=== PATIENT | male | born 1980 | race Caucasian/White ===

== ENCOUNTER 2016-10-18 16:49 | Emergency (ER) | payer OTHER ==
[2016-10-18 17:10] VITALS: BP 140/70; PULSE 60; RESP 20; TEMP 99.1
[2016-10-18 17:20] VITALS: RESP 16; O2SAT 98
[2016-10-18 17:33] LABS: AUTOMATED NEUTROPHIL # 9.5 TH/MM3 (1.8-7.7); BASOPHIL # 0.4 TH/MM3 (0-0.2); BASOPHIL % 3.1 % (0.0-2.0); EOSINOPHIL # 0.2 TH/MM3 (0-0.4); EOSINOPHIL % 1.3 % (0.0-4.0); LYMPH % 14.5 % (9.0-44.0); LYMPHOCYTE # 1.9 TH/MM3 (1.0-4.8); MEAN CELL VOLUME 90.2 FL (80.0-100.0); MEAN CORPUSCULAR HEMOGLOBIN 29.2 PG (27.0-34.0); MEAN CORPUSCULAR HGB CONC 32.4 % (32.0-36.0); NEUT % 74.1 % (16.0-70.0); PLATELET COUNT 342 TH/MM3 (150-450); RED BLOOD COUNT 5.22 MIL/MM3 (4.50-5.90); RED CELL DISTRIBUTION WIDTH 12.9 % (11.6-17.2); WHITE BLOOD COUNT 12.9 TH/MM3 (4.0-11.0)
[2016-10-18 17:38] LABS: HEMO FLAGS DIFF FINAL
[2016-10-18 17:44] LABS: POTASSIUM 3.9 MEQ/L (3.5-5.1)
[2016-10-18] MEDS ORDERED: ONDANSETRON HCL 4 MG/2 ML VIAL IV PUSH ONE (17:45)
[2016-10-18] MEDS ORDERED: MORPHINE SULFATE 4 MG/ML INJ IV PUSH ONE (17:45)
[2016-10-18 17:47] LABS: BICARBONATE 25.3 MEQ/L (21.0-32.0)
[2016-10-18 17:48] LABS: APTT (PATIENT) 25.3 SEC (24.3-30.1)
--- NOTE | 2016-10-18 17:48 | PD ---
HPI Chief Complaint: Injury Time Seen by Provider: 17:13 Travel History International Travel<30 days: No Contact w/Intl Traveler<30days: No Traveled to known affect area: No History of Present Illness HPI 36-year-old male with no significant past medical issues, presents to the ER today because he states that he was working on a roof and fell onto a truss hitting the anterior part of his chest, is complaining of 8 out of 10 anterior chest wall pain, neck pain, upper back pain. He got himself up, had walked himself to urgent care and was told to come to the ER. He has more pain with movement and deep breaths. He denies any other injuries. He denies any head injury or loss of consciousness. Modifying Factors: None Associated Signs & Symptoms: Fall, anterior chest wall pain and neck pain and upper back pain Risk Factors: None PFSH Past Medical History Asthma: Yes Diminished Hearing: No Tetanus Vaccination: < 5 Years Influenza Vaccination: No ?: Not Past Surgical History Surgical History: No Previous Surgery Social History Alcohol Use: No Tobacco Use: No Substance Use: No Allergies-Medications (Allergen,Severity, Reaction): Coded Allergies: Aspirin (Verified Allergy, Unknown, SOB, 10/18/16) Review of Systems Except as stated in HPI: all other systems reviewed are Neg Physical Exam Narrative GENERAL: Well-developed young white male patient currently in moderate distress , awake and oriented 3. SKIN: Warm and dry. HEAD: Atraumatic. Normocephalic. EYES: Pupils equal and round. No scleral icterus. No injection or drainage. ENT: No nasal bleeding or discharge. Mucous membranes pink and moist. NECK: Trachea midline. No JVD. CARDIOVASCULAR: Regular rate and rhythm. No murmur appreciated. RESPIRATORY: No accessory muscle use. Clear to auscultation. Breath sounds equal bilaterally. CHEST: Tender to palpation of the midsternal area without deformity or crepitance. No obvious ecchymosis. No retractions or use of accessory muscles. GASTROINTESTINAL: Abdomen soft, non-tender, nondistended. Hepatic and splenic margins not palpable. MUSCULOSKELETAL: No obvious deformities. No clubbing. No cyanosis. No edema. NEUROLOGICAL: Awake and alert. No obvious cranial nerve deficits. Motor grossly within normal limits. Normal speech. PSYCHIATRIC: Appropriate mood and affect; insight and judgment normal. Data Data Last Documented VS Vital Signs Date Time Temp Pulse Resp B/P Pulse Ox O2 Delivery O2 Flow Rate FiO2 10/18/16 17:20 98 Room Air 10/18/16 17:20 16 10/18/16 17:10 99.1 60 140/70 Orders Basic Metabolic Panel (Bmp) (10/18/16 17:13) Complete Blood Count With Diff (10/18/16 17:13) Prothrombin Time / Inr (Pt) (10/18/16 17:13) Act Partial Throm Time (Ptt) (10/18/16 17:13) Type And Screen (10/18/16 17:13) Chest, Single Ap (10/18/16 17:13) Ct Thorax/ Chest W Iv Contrast (10/18/16 17:13) Iv Access Insert/Monitor (10/18/16 17:13) Ecg Monitoring (10/18/16 17:13) Oximetry (10/18/16 17:13) Oxygen Administration (10/18/16 17:13) Ct Cerv Spine W/O Contrast (10/18/16 17:13) Morphine Inj (Morphine Inj) (10/18/16 17:45) Ondansetron Inj (Zofran Inj) (10/18/16 17:45) Iohexol 350 Inj (Omnipaque 350 Inj) (10/18/16 18:32) Labs Laboratory Tests Test 10/18/16 17:00 White Blood Count 12.9 TH/MM3 Red Blood Count 5.22 MIL/MM3 Hemoglobin 15.3 GM/DL Hematocrit 47.0 % Mean Corpuscular Volume 90.2 FL Mean Corpuscular Hemoglobin 29.2 PG Mean Corpuscular Hemoglobin 32.4 % Concent Red Cell Distribution Width 12.9 % Platelet Count 342 TH/MM3 Mean Platelet Volume 7.7 FL Neutrophils (%) (Auto) 74.1 % Lymphocytes (%) (Auto) 14.5 % Monocytes (%) (Auto) 7.0 % Eosinophils (%) (Auto) 1.3 % Basophils (%) (Auto) 3.1 % Neutrophils # (Auto) 9.5 TH/MM3 Lymphocytes # (Auto) 1.9 TH/MM3 Monocytes # (Auto) 0.9 TH/MM3 Eosinophils # (Auto) 0.2 TH/MM3 Basophils # (Auto) 0.4 TH/MM3 CBC Comment DIFF FINAL Differential Comment Prothrombin Time 11.0 SEC Prothromb Time International 1.0 RATIO Ratio Activated Partial 25.3 SEC Thromboplast Time Sodium Level 139 MEQ/L Potassium Level 3.9 MEQ/L Chloride Level 103 MEQ/L Carbon Dioxide Level 25.3 MEQ/L Anion Gap 11 MEQ/L Blood Urea Nitrogen 19 MG/DL Creatinine 0.94 MG/DL Estimat Glomerular Filtration 91 ML/MIN Rate Random Glucose 86 MG/DL Calcium Level 8.8 MG/DL [facility] Medical Decision Making Medical Screen Exam Complete: Yes Emergency Medical Condition: Yes Medical Record Reviewed: Yes Interpretation(s) Laboratory Tests Test 10/18/16 17:00 White Blood Count 12.9 TH/MM3 (4.0-11.0) Neutrophils (%) (Auto) 74.1 % (16.0-70.0) Basophils (%) (Auto) 3.1 % (0.0-2.0) Neutrophils # (Auto) 9.5 TH/MM3 (1.8-7.7) Basophils # (Auto) 0.4 TH/MM3 (0-0.2) Blood Urea Nitrogen 19 MG/DL (7-18) Differential Diagnosis Anterior chest wall pain after fallchest wall contusion versus rib fractures versus acute intrathoracic injuries Narrative Course X-ray and CAT scans did not reveal any signs of acute injuries. Patient likely has a chest wall contusion and my plan would be to give him symptomatic relief or pain and follow-up with primary care doctor. Return for any worsening in symptoms as needed. The plan has been discussed with him and he states understanding. Diagnosis Primary Impression: Chest wall contusion Med/Other Pt SpecificInfo: Prescription(s) given Scripts Hydrocodone-Acetaminophen (Lortab)5-325 Mg Tab1-2 Tab PO Q6H PRN (PAIN) #15 TAB Ref 0 Prov:Cheryle Hugo MD 10/18/16 Disposition: 01 DISCHARGE HOME Condition: Stable Cheryle Hugo MD Oct 18, 2016 17:48
--- NOTE | 2016-10-18 18:30 | RADHPO ---
EXAM DATE/TIME: 10/18/2016 17:41 [facility] COMPARISON: No previous studies available for comparison. INDICATIONS : Fall, complains of chest pain. MEDICAL HISTORY : Asthma SURGICAL HISTORY : None. ENCOUNTER: Initial ACUITY: 1 day PAIN SCORE: 10/10 LOCATION: Bilateral chest FINDINGS: Mild increased interstitial changes are noted consistent with mild pulmonary vascular congestion vers us pneumonia. Clinical correlation is recommended. The heart is mildly prominent. There is a poor i nspiratory result. CONCLUSION: 1. Mild increased interstitial markings consistent with mild pulmonary vascular congestion versus pne umonia. Clinical correlation is recommended. 2. Mild prominence of the cardiac silhouette. 3. Poor inspiratory result. Fco Bello MD on October 18, 2016 at 18:20 Board Certified Radiologist. This report was verified electronically.
[2016-10-18] MEDS ORDERED: IOHEXOL 350 MG/ML 10 ML VIAL (for RAD DIAG) IV ONE (18:32)
--- NOTE | 2016-10-18 18:44 | RADHPO ---
EXAM DATE/TIME: 10/18/2016 18:05 [facility] COMPARISON: CHEST SINGLE AP, October 18, 2016, 17:41. INDICATIONS : Trauma. Chest pain post fall from roof. IV CONTRAST: 75 cc Omnipaque 350 (iohexol) IV RADIATION DOSE: 14.08 CTDIvol (mGy) MEDICAL HISTORY : None SURGICAL HISTORY : None. ENCOUNTER: Initial ACUITY: 1 day PAIN SCALE: 9/10 LOCATION: Bilateral chest TECHNIQUE: Volumetric scanning of the chest was performed. Using automated exposure control and adjustment of t he mA and/or kV according to patient size, radiation dose was kept as low as reasonably achievable to obtain optimal diagnostic quality images. FINDINGS: The lungs are clear without infiltrate, nodule, or mass. There is no pleural effusion. No appreciab le pathological adenopathy is seen within the mediastinum. The right kidney measures 8.2 cm in AP melody meter left kidney measures 4.2 cm and symmetrical in size and most likely on a congenital basis, rehman dionicio the exact etiology is not certain. No definite fractures are seen. No definite pneumothorax is se en for technique. CONCLUSION: Unremarkable study except for asymmetrical size of the kidneys. Lux Thompson MD on October 18, 2016 at 18:39 Board Certified Radiologist. This report was verified electronically.
--- NOTE | 2016-10-18 18:55 | RADHPO ---
EXAM DATE/TIME: 10/18/2016 18:00 [facility] COMPARISON: No previous studies available for comparison. INDICATIONS : Trauma. Fall from roof. Neck pain. RADIATION DOSE: 26.70 CTDIvol (mGy) MEDICAL HISTORY : None SURGICAL HISTORY : None. ENCOUNTER: Initial ACUITY: 1 day PAIN SCALE: 9/10 LOCATION: Bilateral neck TECHNIQUE: Volumetric scanning of the cervical spine was performed. Multiplanar reconstructions in the sagittal, coronal and oblique axial planes were performed. Using automated exposure control and adjustment o f the mA and/or kV according to patient size, radiation dose was kept as low as reasonably achievable to obtain optimal diagnostic quality images. FINDINGS: No significant subluxation or soft tissue swelling is seen. No definite fracture is seen for techniqu e. C2-C3: No appreciable compromised to the thecal sac, exiting nerve roots are seen. The neural danii sai are patent bilaterally. No appreciable thecal sac stenosis is seen. C3-C4: No appreciable compromised to the thecal sac, exiting nerve roots are seen. The neural danii sai are patent bilaterally. No appreciable thecal sac stenosis is seen. There is hypertrophic change protruding into bilateral lateral recess without any significant compromise to the exiting nerve felecia ts. C4-C5: No appreciable compromised to the thecal sac, exiting nerve roots are seen. The neural danii sai are patent bilaterally. No appreciable thecal sac stenosis is seen. C5-C6: No appreciable compromised to the thecal sac, exiting nerve roots are seen. The neural danii sai are patent bilaterally. No appreciable thecal sac stenosis is seen. C6-C7: Slight degenerative changes are seen within the disc space and facets. Slight bulging disc and hypertrophic changes are seen with indentation on the thecal sac and no significant compromise to th e thecal sac or the exiting nerve roots. C7-T1: No appreciable compromised to the thecal sac, exiting nerve roots are seen. The neural danii sai are patent bilaterally. No appreciable thecal sac stenosis is seen CONCLUSION: Chronic changes without any significant compromise to the thecal sac or the exiting nerve roots. Lux Thompson MD on October 18, 2016 at 18:49 Board Certified Radiologist. This report was verified electronically.
[2016-10-18] MEDS ORDERED: HYDR-3533 PO (19:10)
[2016-10-18 19:19] VITALS: BP 138/76; PULSE 52; RESP 20; O2SAT 100
== END 2016-10-18 19:33 | disposition home or self-care (01) ==
LOC: PHEFT 16:49
DX: S20.219A Contusion of unspecified front wall of thorax, initial encounter (principal); W18.39XA Other fall on same level, initial encounter; Y93.H3 Activity, building and construction; Y92.61 Building [any] under construction as the place of occurrence of the external cause; Y99.0 Civilian activity done for income or pay
CPT/HCPCS: 71010; 71260; 72125; 80048; 85025; 85610; 85730; 86850; 86900; 86901; 96374; 96375; 99284; J2270; J2405; Q9967